=== PATIENT | female | born 1985 | race African-American/Black ===

== ENCOUNTER 2016-09-28 09:15 | Day surgery (SDC) | payer MEDICAID, OTHER ==
[~2016-09-28 09:15] MED LIST: DIPHENHYDRAMINE HCL 50 MG/ML VIAL ONE; EPINEPHRINE INJ 1 MG/10 ML DISP.SYRIN ONE; FLUMAZENIL INJ 0.5 MG/5 ML VIAL IV ONE; GLUCAGON,HUMAN RECOMB 1 MG INJ ONE; NALOXONE HCL INJ/PF 0.4 MG/1 ML SDV ONE; ONDANSETRON HCL INJ/PF 4 MG/2 ML SDV ONE
[2016-09-28] MEDS: MIDAZOLAM 2 MG/2 ML INJ ONE ×3 (09:25→09:35)
[2016-09-28] MEDS: FENTANYL CITRATE INJ/PF 100 MCG/2 ML AMPUL ONE ×2 (09:27→09:32)
[2016-09-28 10:59] VITALS: BP 109/62
--- NOTE | 2016-09-28 12:24 | Operative Report ---
Operative Report DATE OF SURGERY: 09/28/16 Operative Report: The risks, benefits and alternatives of the procedure including risks of bleeding, perforation requiring surgery are explained to the patient detail and informed consent was obtained. Patient was taken back to the endoscopy suite and placed in the left, lateral decubital position. Timeout was called. Conscious sedation medications are provided. A rectal examination was done which did not reveal any masses, tears or fissures. An Olympus videoscope was inserted into the patient's rectum. Scope was then gradually advanced all the way to the cecum. The cecum was identified by the usual anatomical landmarks including the ileocecal valve as well as appendiceal office. Photodocumentation was obtained. Intubation of the terminal ileum is done. The scope was then sequentially pulled back out via the various segments of the colon including the ascending colon, hepatic flexure, transverse colon, splenic flexure, descending colon finding to the rectosigmoid portions of the colon. Retroflexion maneuver was performed. PREOPERATIVE DIAGNOSIS: Rectal bleeding, diarrhea POSTOPERATIVE DIAGNOSIS: Ulcers in the terminal ileum status post biopsy rule out Crohn's disease. Internal hemorrhoids OPERATION: Colonoscopy with biopsy SURGEON: TERE ULRICH ANESTHESIA: Moderate Sedation - 6 mg of Versed, 125 mcg of fentanyl. Conscious sedation monitoring time 30 minutes. TISSUE REMOVED OR ALTERED: Specimens as taken above COMPLICATIONS: None. ESTIMATED BLOOD LOSS: None. INTRAOPERATIVE FINDINGS: As described above. PROCEDURE: Patient tolerated the procedure well. No immediate postprocedure complications are noted. Patient discharged in good condition. Discharge date 09/28/16 Discharge diet: Regular. Discharge activity: Regular. 2-3 week follow-up to discuss findings. Patient is instructed call the office or proceed to the emergency room should there be any further problems or questions. We will wait on pathology.
== END 2016-09-28 10:59 | disposition home or self-care (01) ==
LOC: END 09:15
PROVIDERS: ATTEND Internal Medicine Gastroenterology
PROC: 0DBB8ZX Excision of Ileum, Via Natural or Artificial Opening Endoscopic, Diagnostic (ICD-10-PCS; principal; 2016-09-28 09:30)
DX: K52.9 Noninfective gastroenteritis and colitis, unspecified (principal); K64.8 Other hemorrhoids; K63.3 Ulcer of intestine; K62.5 Hemorrhage of anus and rectum
CPT/HCPCS: 45380; 88305 ×2; J2250; J3010; J0171; J1200; J1610; J2310; J2405; J3490

== ENCOUNTER 2017-06-05 16:15 | Outpatient (CLI) | payer MEDICAID ==
[2017-06-05 17:20] LABS: APPEARANCE,URINE CLEAR; BILIRUBIN,URINE NEGATIVE (NEGATIVE); COLOR,URINE YELLOW; GLUCOSE, URINE NEGATIVE (NEGATIVE); KETONES,URINE NEGATIVE (NEGATIVE); LEUKOCYTE ESTERASE,URINE LARGE (NEGATIVE); NITRITE,URINE NEGATIVE (NEGATIVE); PROTEIN,URINE NEGATIVE (NEGATIVE); URINE SPECIFIC GRAVITY 1.008; UROBILINOGEN,URINE NEGATIVE mg/dL (<2.0)
[2017-06-05 17:34] LABS: URINE AMPHETAMINES SCREEN NEGATIVE; URINE BARBITURATES SCREEN NEGATIVE; URINE BENZODIAZEPINES SCREEN NEGATIVE; URINE COCAINE SCREEN NEGATIVE; URINE MARIJUANA (THC) SCREEN NEGATIVE; URINE METHADONE SCREEN NEGATIVE; URINE PHENCYCLIDINE SCREEN NEGATIVE
--- NOTE | 2017-06-05 18:33 | Non Stress Test Report ---
Non Stress Test Datetime Report Generated by CPN: 06/05/2017 18:33 DEMOGRAPHIC EGA NST: 33.1 INDICATION Indication for Study: Ordered by Provider MONITORING Monitor Explained: Monitor Explained; Test Explained; Patient Verbalized Understanding Time on Monitor: 06/05/2017 16:51 Time off Monitor: 06/05/2017 18:24 NST Duration: 93 NST INTERVENTIONS NST Interventions: PO Hydration; Reposition Patient Physician Notified NST: Dr. Bear BABY A: [id number] Movement : Present Contraction Frequency : None FHR Baseline : 130 Accelerations : 15X15 Decelerations : None Variability : Moderate 6-25bpm NST Review: Meets Criteria for Reactive NST NST Review and Verified By : LEA WADET Results: Reactive NST REPORT Report Trigger: Send Report
--- NOTE | 2017-06-05 19:13 | RADIOLOGY REPORT (SQ) ---
EXAM DESCRIPTION: U/S OB LIMITED COMPLETED DATE/TIME: 06/05/2017 6:51 pm REASON FOR STUDY: S/P FALL-33.1 WKS, CRAMPS. PLACENA WELLBEI COMPARISON: None. TECHNIQUE: Limited transabdominal grayscale ultrasound for evaluation of specific requested obstetri crystal parameters. LIMITATIONS: None. FINDINGS: CERVICAL LENGTH: 3.3 cm Closed. JENNY: 10.3 cm. FHR: 137 beats per minute. PRESENTATION: Cephalic. OTHER: Placenta anterior. No evidence of abruption or previa. IMPRESSION: LIMITED OBSTETRICAL ULTRASOUND WITH MEASURED PARAMETERS DELINEATED ABOVE. Trimester of : Third trimester - 28 weeks to delivery. TECHNICAL DOCUMENTATION: JOB ID: [id number] [email or web address]- All Rights Reserved Reading location - IP/workstation name: [email or web address]
== END 2017-06-05 19:33 | disposition home or self-care (01) ==
LOC: LC 16:15
PROVIDERS: ATTEND Obstetrics & Gynecology
PROC: 4A1HXCZ Monitoring of Products of Conception, Cardiac Rate, External Approach (ICD-10-PCS; principal; 2017-06-05)
DX: O47.03 False labor before 37 completed weeks of gestation, third trimester (principal); Z3A.33 33 weeks gestation of pregnancy
CPT/HCPCS: 59025; 76815; 80307; 81001

== ENCOUNTER → 2018-05-28 | Outpatient (CLI) | payer SELFPAY ==
--- NOTE | 2018-05-28 14:33 | RADIOLOGY REPORT (SQ) ---
EXAM DESCRIPTION: HYSTERO W/WO COLR FLW DOPPLER COMPLETED DATE/TIME: 05/28/2018 11:10 am REASON FOR STUDY: OVARIAN DYSFUNCTION (E28.9) Z31.89 ENCOUNTER FOR OTHER PROCREATIVE MANAGEMENT COMPARISON: OB ultrasound 06/05/2017 Pelvic ultrasound 06/05/2015 TECHNIQUE: Dynamic and static grayscale images acquired of the pelvis via transvaginal approach and recorded on PACS. Additional selected color Doppler and spectral images recorded. Initial imaging of the pelvis was performed transvaginally, without a catheter in place. After insertion of a vaginal speculum, a 7 [place] hysterosalpingogram catheter was placed with the ti p in the cervix/lower uterine segment. Speculum removed, and repeat endovaginal ultrasound was perfor med during gentle hand injection of sterile saline into the endometrial canal. Endovaginal scanning was repeated after removal of the hysterosalpingogram catheter. LIMITATIONS: None. FINDINGS: UTERUS: Contour normal. No mass. The uterus measures 9.8 x 6.7 x 4.6 cm in size. ENDOMETRIAL STRIPE: No focal or generalized thickening. No masses. Endometrium measures 6 mm in thick ness. During saline infusion into the endometrial canal, no synechiae are identified. No endometria l polyps or nodularity. Normal endometrial thickness. CERVIX: No nabothian cysts. Closed, 2.7 cm in length. RIGHT OVARY: No abnormal masses. Right ovary is 3.9 x 2.6 x 2.5 cm in size with multiple small follic les. RIGHT OVARY DOPPLER: Normal arterial vascular flow without evidence for torsion. LEFT OVARY: No abnormal masses. Left ovary is 2.3 x 1.8 x 1.6 cm in size with multiple small follicle s. LEFT OVARY DOPPLER: Normal arterial vascular flow without evidence for torsion. FREE FLUID: None noted. OTHER: No other significant finding. IMPRESSION: NORMAL TRANSVAGINAL PELVIC ULTRASOUND WITH HYSTEROSONOGRAM TECHNIQUE. TECHNICAL DOCUMENTATION: JOB ID: [id number] [employer]- All Rights Reserved Reading location - IP/workstation name: [email or web address]
== END ==
LOC: RAD 09:27
PROVIDERS: ATTEND Obstetrics & Gynecology Reproductive Endocrinology
DX: E28.9 Ovarian dysfunction, unspecified (principal)
CPT/HCPCS: 76831